=== PATIENT | female | born 2000 ===

== ENCOUNTER 2020-09-14 20:44 | Emergency (ER) | payer BC, SELFPAY ==
[2020-09-14 20:51] VITALS: BP 98/65; PULSE 85; RESP 22; TEMP 36.7; O2SAT 100
--- NOTE | 2020-09-14 20:53 | ED_ITS ---
HPI - Alcohol General Chief Complaint: Toxicology Problem Stated Complaint: ETOH Time Seen by Provider: 09/14/20 20:51 Source: EMS Mode of arrival: EMS History of Present Illness HPI narrative: Patient is a young 19-year-old female who presents with alcohol intoxication injuring decreased mental status. [place] she slammed 3 strawberry daquiri's. She wasinitially talking and then she became more unresponsive and vomited. There is no history of trauma she is moving. She can follow some commands but is not verbal. Review of Systems Review of Systems ROS Unobtainable: Unobtainable due to medical condition Exam Initial Vital Signs Initial Vital Signs: Vital Signs Temperature 98.0 F 09/14/20 20:51 Pulse Rate 85 09/14/20 20:51 Respiratory Rate 22 09/14/20 20:51 Blood Pressure 98/65 09/14/20 20:51 Pulse Oximetry 100 09/14/20 20:51 GENERAL: Sleeping 19-year-old who is arousable to pain HEENT: Head atraumatic,EOMI, pupils reactive, face symmetric, [moist] mucous membranes CARDIOVASCULAR: Regular rate and rhythm without murmurs, rubs or gallops. RESPIRATORY: Breath sounds equal bilaterally, no wheezes rales or rhonchi. ABDOMEN: Soft, nontender. Normoactive bowel sounds all 4 quadrants. No guarding or rebound. EXTREMITIES: Normal range of motion, no clubbing or edema. Neurovascularly intact NEUROLOGICAL: Response to pain able to squeeze fingers SKIN: Warm, dry, no laceration, no petechiae, no rashes or lesions. Course Orders Ordered: Discontinued Medications Sodium Chloride (Normal Saline 0.9%) 1,000 mls @ 1,000 mls/hr IV CONT DELVIS Last Admin: 09/14/20 21:06 Dose: 1,000 mls/hr Documented by: CHATA Ondansetron HCl (Ondansetron 4 Mg/2 Ml Inj) 4 mg IV NOW ONE Stop: 09/14/20 20:52 Last Admin: 09/14/20 21:06 Dose: 4 mg Documented by: CHATA MDM - Alcohol Lab Data Attestation: I reviewed the patient's lab results. Result diagrams: 09/14/20 21:00 09/14/20 21:00 Labs: Lab Results 09/14/20 09/14/20 09/14/20 Range/Units 21:00 21:00 21:00 WBC 7.6 (4.5-11.0) X10^3/uL RBC 4.31 (4.0-5.2) X10^6/uL Hgb 13.9 (12.0-16.0) g/dL Hct 41.3 (36-46) % MCV 95.9 (80-100) fL MCH 32.2 (26-34) PG MCHC 33.6 (30-36) % RDW 13.1 (11.6-14.8) % Plt Count 282 (150-400) X10^3/uL Neut % (Auto) 48.2 L (50-75) % Lymph % (Auto) 41.2 H (25-40) % [place] % (Auto) 8.1 (3-14) % Eos % (Auto) 1.7 L (2-4) % Baso % (Auto) 0.8 (0-2) % Neut # (Auto) 3700 (8147-1587) /uL Lymph # (Auto) 3100 (2405-4251) /uL [place] # (Auto) 600 (0-900) /uL Eos # (Auto) 100 (0-450) /uL Baso # (Auto) 100 (0-100) /uL Sodium 142 (137-145) mmol/L Potassium 4.5 (3.4-5.1) mmol/L Chloride 110 H (98-107) mmol/L Carbon Dioxide 21 L (22-32) mmol/L BUN 7 (7-17) mg/dL Creatinine 0.78 (0.52-1.04) mg/dL Estimated GFR > 60.0 (>60) mL/min BUN/Creatinine Ratio 9.0 (6-22) Glucose 93 (70-100) mg/dL Lactate 2.2 H (0.7-2.1) mmol/L Calcium 9.2 (8.4-10.2) mg/dL Total Bilirubin 0.5 (0.2-1.3) mg/dL AST 38 H (14-36) IU/L ALT 21 (<35) IU/L Alkaline Phosphatase 31 L (38-126) U/L Total Protein 8.5 H (6.3-8.2) g/dL Albumin 4.6 (3.5-5.0) g/dL Globulin 3.9 (1.7-4.1) g/dL Albumin/Globulin Ratio 1.2 (1.0-2.8) Serum , Qual (Negative) Salicylates < 1.0 (<20) mg/dL Acetaminophen < 10 L (10-30) ug/mL Ethyl Alcohol 183 H ( - 10) mg/dL 09/14/20 Range/Units 21:00 WBC (4.5-11.0) X10^3/uL RBC (4.0-5.2) X10^6/uL Hgb (12.0-16.0) g/dL Hct (36-46) % MCV (80-100) fL MCH (26-34) PG MCHC (30-36) % RDW (11.6-14.8) % Plt Count (150-400) X10^3/uL Neut % (Auto) (50-75) % Lymph % (Auto) (25-40) % [place] % (Auto) (3-14) % Eos % (Auto) (2-4) % Baso % (Auto) (0-2) % Neut # (Auto) (5871-3666) /uL Lymph # (Auto) (2847-4734) /uL [place] # (Auto) (0-900) /uL Eos # (Auto) (0-450) /uL Baso # (Auto) (0-100) /uL Sodium (137-145) mmol/L Potassium (3.4-5.1) mmol/L Chloride (98-107) mmol/L Carbon Dioxide (22-32) mmol/L BUN (7-17) mg/dL Creatinine (0.52-1.04) mg/dL Estimated GFR (>60) mL/min BUN/Creatinine Ratio (6-22) Glucose (70-100) mg/dL Lactate (0.7-2.1) mmol/L Calcium (8.4-10.2) mg/dL Total Bilirubin (0.2-1.3) mg/dL AST (14-36) IU/L ALT (<35) IU/L Alkaline Phosphatase (38-126) U/L Total Protein (6.3-8.2) g/dL Albumin (3.5-5.0) g/dL Globulin (1.7-4.1) g/dL Albumin/Globulin Ratio (1.0-2.8) Serum , Qual Negative (Negative) Salicylates (<20) mg/dL Acetaminophen (10-30) ug/mL Ethyl Alcohol ( - 10) mg/dL MDM Narrative Medical decision making narrative: Patient is found to be intoxicated. After some time she is able to wake up opens her eyes answers all questions. She states that she smokes some marijuana and had alcohol. She is overall feeling much better and her friend is able to drive her home she would like to go home. She has absolutely no sign of trauma and no history of trauma her friend who is with her. At this time no imaging indicated. Discharge Plan Departure Patient Disposition: Home Clinical Impression: Alcoholic intoxication Instructions: DI for Alcohol Poisoning Activity Restrictions/Additional Instructions: *You have been diagnosed with alcohol intoxication *What to do: Recommend do not drinking alcohol and smoking marijuana together *Continue to take medications as directed *Follow up with your primary care provider in 2-3 days *Return to ER if you should have persistent vomiting, altered mental status or any new, worsening or concerning symptoms
[2020-09-14] MEDS: SODIUM CHLORIDE 0.9% 1,000 ML 1000 ML IV (21:06)
[2020-09-14] MEDS: ONDANSETRON 4 MG/2 ML INJ IV (21:06)
[2020-09-14 21:14] LABS: Add Manual Diff / Slide Review NO; Basophils Absolute Auto 100 /uL (0-100); Basophils Percent Auto 0.8 % (0-2); Eosinophils Absolute Auto 100 /uL (0-450); Eosinophils Percent Auto 1.7 % (2-4); Hematocrit 41.3 % (36-46); Hemoglobin 13.9 g/dL (12.0-16.0); Lymphocytes Absolute Auto 3100 /uL (1100-4500); Lymphocytes Percent Auto 41.2 % (25-40); Mean Corpuscular HGB Conc 33.6 % (30-36); Mean Corpuscular Hemoglobin 32.2 PG (26-34); Mean Corpuscular Volume 95.9 fL (80-100); Monocytes Absolute Auto 600 /uL (0-900); Monocytes Percent Auto 8.1 % (3-14); Neutrophils Absolute Auto 3700 /uL (1500-7000); Neutrophils Percent Auto 48.2 % (50-75); Platelet Count 282 X10^3/uL (150-400); Red Blood Cell Count 4.31 X10^6/uL (4.0-5.2); Red Cell Distribution Width 13.1 % (11.6-14.8); White Blood Cell Count 7.6 X10^3/uL (4.5-11.0)
[2020-09-14 21:24] LABS: Pregnancy Test Serum,Qual Negative (Negative)
[2020-09-14 21:26] LABS: Acetaminophen < 10 ug/mL (10-30); Alanine Aminotransferase 21 IU/L (<35); Albumin 4.6 g/dL (3.5-5.0); Albumin Globulin Ratio 1.2 (1.0-2.8); Alkaline Phosphatase 31 U/L (38-126); Aspartate Aminotransferase 38 IU/L (14-36); Bilirubin Total 0.5 mg/dL (0.2-1.3); Blood Urea Nitrogen 7 mg/dL (7-17); Calcium 9.2 mg/dL (8.4-10.2); Carbon Dioxide 21 mmol/L (22-32); Chloride 110 mmol/L (98-107); Estimated Glomerular Filt Rate > 60.0 mL/min (>60); Ethanol (ETOH) 183 mg/dL; Globulin 3.9 g/dL (1.7-4.1); Glucose 93 mg/dL (70-100); HEMOLYSIS 126 (0-50); Salicylate < 1.0 mg/dL (<20); Sodium 142 mmol/L (137-145); Total Protein 8.5 g/dL (6.3-8.2)
[2020-09-14 21:27] LABS: Lactate (Lactic Acid) 2.2 mmol/L (0.7-2.1); Potassium 4.5 mmol/L (3.4-5.1)
[2020-09-14 23:10] LABS: Reflexed Lactate in 2 Hours Y
--- NOTE | 2020-09-25 15:52 | PC.NURSE ---
Late Entry- IV fluids DC'd at 2230 discharge
== END 2020-09-14 22:50 | disposition home or self-care (01) ==
PROVIDERS: Emergency Provider Emergency Medicine
DX: F10.129 Alcohol abuse with intoxication, unspecified (principal)
CPT/HCPCS: 80053; 80320; 80329; 83605; 84703; 85025; 96361; 96374; 99283; 99284; G0480; J2405